=== PATIENT | female | born 1970 | race Caucasian/White ===

== ENCOUNTER → 2017-07-23 09:27 | Outpatient (CLI) | payer OTHER, SELFPAY ==
[2017-07-23 10:17] LABS: Add Manual Diff / Slide Review NO; Basophils Percent Auto 1.4 % (0-2); Eosinophils Percent Auto 2.5 % (2-4); Hematocrit 43.4 % (36-46); Hemoglobin 14.8 g/dL (12.0-16.0); Lymphocytes Percent Auto 34.6 % (25-40); Mean Corpuscular HGB Conc 34.2 % (30-36); Mean Corpuscular Hemoglobin 28.9 PG (26-34); Mean Corpuscular Volume 84.5 fL (80-100); Monocytes Percent Auto 7.8 % (3-14); Neutrophils Absolute Auto 3400 /uL (3000-5900); Neutrophils Percent Auto 53.7 % (50-75); Platelet Count 280 X10^3/uL (150-400); Red Blood Cell Count 5.14 X10^6/uL (4.0-5.2); Red Cell Distribution Width 13.8 % (11.6-14.8); White Blood Cell Count 6.3 X10^3/uL (4.5-11.0)
[2017-07-23 10:34] LABS: Alanine Aminotransferase 48 IU/L (9-52); Albumin 4.5 g/dL (3.5-5.0); Albumin Globulin Ratio 1.7 (1.0-2.8); Alkaline Phosphatase 54 U/L (38-126); Aspartate Aminotransferase 29 IU/L (14-36); BUN Creatinine Ratio 22.5 (6-22); Bilirubin Total 0.5 mg/dL (0.2-1.3); Calcium 9.4 mg/dL (8.4-10.2); Cholesterol 218 mg/dL (140-199); Estimated Glomerular Filt Rate > 60.0 mL/min (>60); Globulin 2.7 g/dL (1.7-4.1); Glucose 105 mg/dL (70-100); HDL Cholesterol 37 mg/dL (40-60); LDL Cholesterol Calculated 162 mg/dL (<100); Sodium 140 mmol/L (137-145); Total Protein 7.2 g/dL (6.3-8.2); Triglycerides 97 mg/dL (35-150)
[2017-07-23 10:35] LABS: HEMOLYSIS < 15 (0-50); Potassium 3.8 mmol/L (3.4-5.1)
== END ==
PROVIDERS: PCP Family Medicine; Visit Provider Family Medicine
DX: E78.2 Mixed hyperlipidemia (principal)
CPT/HCPCS: 36415; 80053; 80061; 85025

== ENCOUNTER → 2018-03-11 09:16 | Outpatient (CLI) | payer BC, SELFPAY ==
[2018-03-11 10:48] LABS: Alanine Aminotransferase 47 IU/L (9-52); Albumin 4.3 g/dL (3.5-5.0); Albumin Globulin Ratio 1.9 (1.0-2.8); Alkaline Phosphatase 48 U/L (38-126); Aspartate Aminotransferase 21 IU/L (14-36); Bilirubin Total 0.3 mg/dL (0.2-1.3); Blood Urea Nitrogen 16 mg/dL (7-17); Calcium 9.5 mg/dL (8.4-10.2); Carbon Dioxide 28 mmol/L (22-32); Chloride 103 mmol/L (98-107); Cholesterol 171 mg/dL (140-199); Estimated Glomerular Filt Rate > 60.0 mL/min (>60); Globulin 2.3 g/dL (1.7-4.1); Glucose 101 mg/dL (70-100); HDL Cholesterol 44 mg/dL (40-60); HEMOLYSIS < 15 (0-50); LDL Cholesterol Calculated 107 mg/dL (<100); Potassium 4.2 mmol/L (3.4-5.1); Sodium 141 mmol/L (137-145); Total Protein 6.6 g/dL (6.3-8.2); Triglycerides 102 mg/dL (35-150)
== END ==
PROVIDERS: PCP Family Medicine; Visit Provider Family Medicine
DX: E78.5 Hyperlipidemia, unspecified (principal); I10 Essential (primary) hypertension
CPT/HCPCS: 36415; 80053; 80061

== ENCOUNTER 2022-02-21 12:16 | Emergency (ER) | payer BC, SELFPAY ==
[2022-02-21] VITALS (14 sets, daily range): BP systolic 123–144; BP diastolic 62–91; PULSE 43–97; RESP 15–35; TEMP 36.8–37; O2SAT 84–100; BMI 26.9
--- NOTE | 2022-02-21 12:43 | DI.RAD.S_ITS ---
PROCEDURE: XR CHEST 1V INDICATIONS: near syncope TECHNIQUE: One view of the chest was acquired. COMPARISON: [facility], , CHEST 1 VIEW, 07/29/2015, 12:30. FINDINGS: Surgical changes and devices: None. Lungs and pleura: Lungs are clear. No pleural effusions or pneumothorax. Mediastinum: Mediastinal contours appear normal. Heart size is normal. Bones and chest wall: No suspicious bony lesions. Overlying soft tissues appear unremarkable. IMPRESSION: No evidence acute pulmonary process. Dictated by: Morgan Clay M.D. on 02/21/2022 at 13:14 Approved by: Morgan Clay M.D. on 02/21/2022 at 13:14
[2022-02-21 13:08] LABS: Add Manual Diff / Slide Review NO; Basophils Absolute Auto 100 /uL (0-100); Basophils Percent Auto 0.9 % (0-2); Eosinophils Absolute Auto 400 /uL (0-450); Eosinophils Percent Auto 3.4 % (2-4); Hematocrit 42.3 % (36-46); Hemoglobin 14.3 g/dL (12.0-16.0); Lymphocytes Absolute Auto 2600 /uL (1100-4500); Lymphocytes Percent Auto 25.1 % (25-40); Mean Corpuscular HGB Conc 33.7 % (30-36); Mean Corpuscular Hemoglobin 28.2 PG (26-34); Mean Corpuscular Volume 83.6 fL (80-100); Monocytes Absolute Auto 1100 /uL (0-900); Monocytes Percent Auto 10.5 % (3-14); Neutrophils Absolute Auto 6300 /uL (1500-7000); Neutrophils Percent Auto 60.1 % (50-75); Platelet Count 312 X10^3/uL (150-400); Red Blood Cell Count 5.06 X10^6/uL (4.0-5.2); Red Cell Distribution Width 14.2 % (11.6-14.8); White Blood Cell Count 10.5 X10^3/uL (4.5-11.0)
[2022-02-21 13:14] LABS: D Dimer 603 ng/ml (<500)
[2022-02-21 13:17] LABS: Alanine Aminotransferase 52 IU/L (<35); Albumin 4.6 g/dL (3.5-5.0); Albumin Globulin Ratio 1.4 (1.0-2.8); Alkaline Phosphatase 112 U/L (38-126); Aspartate Aminotransferase 30 IU/L (14-36); BUN Creatinine Ratio 14.6 (6-22); Bilirubin Total 0.5 mg/dL (0.2-1.3); Blood Urea Nitrogen 14 mg/dL (7-17); Calcium 9.8 mg/dL (8.4-10.2); Carbon Dioxide 30 mmol/L (22-32); Chloride 94 mmol/L (98-107); Estimated Glomerular Filt Rate > 60 mL/min (>60); Globulin 3.2 g/dL (1.7-4.1); Glucose 118 mg/dL (70-100); HEMOLYSIS < 15 (0-50); Sodium 138 mmol/L (137-145); Total Protein 7.8 g/dL (6.3-8.2)
[2022-02-21] MEDS: SODIUM CHLORIDE 0.9% 1,000 ML 150 ML IV (13:20)
[2022-02-21 13:28] LABS: Troponin I < 0.012 ng/mL (0.01-0.034)
--- NOTE | 2022-02-21 13:32 | DI.CT.S_ITS ---
PROCEDURE: CT ANGIO CHEST PE PROTOCOL INDICATIONS: eval pe, elevated dimer TECHNIQUE: After the administration of intravenous contrast, 2 mm thick sections acquired from the pulmonary apices to the posterior costophrenic angles. 3-dimensional maximum intensity projection (MIP) coronal and sagittal reformats were then acquired through the thorax. For radiation dose reduction, the following was used: automated exposure control, adjustment of mA and/or kV according to patient size. COMPARISON: None. FINDINGS: Image quality: Excellent. Pulmonary arteries: Pulmonary arteries are normal in size, and demonstrate no intraluminal filling defects to suggest central pulmonary embolism. Lungs and pleura: Lungs are clear. No pleural effusions or pneumothorax. Central and peripheral airways are patent. Mediastinum: Heart size is normal, without pericardial effusion. No mediastinal or hilar adenopathy. Thoracic aorta is normal in caliber and enhancement. Esophagus is normal in caliber, without hiatal hernia. Bones and chest wall: No suspicious bony lesions. Ribs and thoracic spine appear intact throughout. Thyroid gland is unremarkable as visualized. No axillary or supraclavicular adenopathy. Abdomen: Visualized upper abdominal solid organs appear normal in the early arterial phase of enhancement. IMPRESSION: 1. No evidence acute pulmonary emboli. 2. No evidence acute pulmonary process. Dictated by: Morgan Clay M.D. on 02/21/2022 at 14:07 Approved by: Morgan Clay M.D. on 02/21/2022 at 14:09
[2022-02-21] MEDS: POTASSIUM CHLORIDE 20 MEQ/15 ML UDC 40 MEQ PO (13:37)
--- NOTE | 2022-02-21 13:42 | PC.NURSE ---
ivf increased per Dr. Murrell to wide open, 999 mls/hour
[2022-02-21 14:19] LABS: Influenza A - CEPHEID Flu A NEGATIVE (NEGATIVE); Influenza B - CEPHEID Flu B NEGATIVE (NEGATIVE); Respiratory Syncytial Virus Negative (Negative)
[2022-02-21 14:30] LABS: COVID-19 CEPHEID 4-PLEX PCR Negative (Negative)
[2022-02-21 14:42] LABS: Magnesium 2.1 mg/dL (1.6-2.3)
--- NOTE | 2022-02-21 15:15 | PC.NURSE ---
Pt was able to ambulate to the bathroom. No statements of dizziness, but stated that her vision of her surrounds seemed off. Pt was able to ambulate back to bed with no dizziness or SOB.
[2022-02-21 15:42] LABS: Appearance Urine UA CLEAR; Bilirubin Urine UA NEGATIVE (NEGATIVE); Color Urine UA YELLOW; Glucose Urine UA NEGATIVE (Negative); Ketones Urine UA 1+ (NEGATIVE); Leukocyte Esterase Urine UA NEGATIVE (NEGATIVE); Nitrite Urine UA NEGATIVE (Negative); Occult Blood Urine UA TRACE-INTACT (Negative); Protein Urine UA NEGATIVE (Negative); Urobilinogen Urine UA 0.2 E.U./dL (0.2)
--- NOTE | 2022-02-21 15:43 | ED.SYNCOPE ---
HPI - Syncope General Chief Complaint: Dizziness Stated Complaint: Near Syncope Time Seen by Provider: 02/21/22 12:24 Source: EMS Mode of arrival: EMS Limitations: no limitations History of Present Illness HPI narrative: 51-year-old female presenting with near syncopal episode that occurred while driving. Patient reports developing lightheadedness, bilateral upper and lower extremity paresthesias, shortness of breath. Patient did not lose consciousness completely, patient does have a history of neurocardiogenic syncope, patient has not had complete syncope with these episodes in the past, this was diagnosed on tilt-table testing. Patient reports fasting earlier in the day, has only had coffee to eat or drink earlier in the day. No recent fevers. No palpitations, no chest pain. Related Data Previous Rx's Medication Instructions Recorded valacyclovir 1 gram tablet 1,000 mg PO Q DAY #90 tabs 07/29/17 simvastatin 20 mg tablet 20 mg PO QPM #90 tabs 03/12/18 valsartan 160 1 tab PO BID #60 tabs 04/13/18 mg-hydrochlorothiazide 25 mg tablet (Diovan HCT) Allergies Allergy/AdvReac Type Severity Reaction Status Date / Time Penicillins [PENICILLINS] Allergy Unknown Verified 02/21/22 12:33 Review of Systems Review of Systems Narrative: Constitutional, Eyes, ENT, Pulmonary, Cardiovascular, Gastrointestinal, Renal, Endocrine, Genitourinary, Musculoskeletal, Neurologic, Skin, and Psychiatric systems were reviewed and negative unless indicated in the HPI above. Patient History Medical History Chronic fatigue (Unknown) Depression (Unknown) Granulomatous mastitis (Unknown) HSV-1 (herpes simplex virus 1) infection (~11/2014) Hyperlipidemia (~12/2014) Hypertension (Unknown) Migraines (Unknown) Neurocardiogenic syncope (Unknown) Pneumonia (2012) Surgical History History of third molar tooth extraction Status post breast lumpectomy Status post surgery (03/19/15) Social History Smoking Status: Never smoker Smoking Status: Never smoker Substance Use Type: does not use Exam Narrative Exam Narrative: Vitals reviewed. Nursing note reviewed Constitutional: interactive HENT: Moist mucous membranes EYES: No scleral icterus NECK: no masses CV: Well perfused peripherally, no cyanosis present PULM: Unlabored respirations, symmetric chest rise ABD: Non-distended MS: No gross deformities, no asymmetric edema noted SKIN: Warm and dry. PSYCH: Appropriate affect NEURO: MS: cooperative, interactive with exam CN: PERRL (II/III) EOMI (III/IV/) Symmetric facial sensation (V) Symmetric facial expression (VII) Hearing intact to voice (VIII) Palate elevates symmetrically (IX/X) Strong shoulder shrug (XI) Tongue protrudes midline (XII) Motor: normal tone and bulk, 5/5 in the upper and lower extremities DTR?s: deferred Sensory: intact to light touch Gait/station: stable, no ataxia Initial Vital Signs Initial Vital Signs: Vital Signs Pulse Rate 89 02/21/22 12:29 Respiratory Rate 20 02/21/22 12:29 Course Orders Ordered: ED Orders 02/21/22 12:30 Complete Blood Count AUTO DIFF Stat Comprehensive Metabolic Panel Stat D Dimer Stat Magnesium Stat Troponin I Stat 02/21/22 12:43 XR chest 1V Stat 02/21/22 13:05 Covid-19 + FLU A/B + RSV - PCR Stat 02/21/22 13:32 CT angio chest PE protocol Stat 02/21/22 15:15 Urinalysis Screen (Dip Only) Stat Sodium Chloride (Normal Saline 0.9%) 1,000 mls @ 150 mls/hr IV CONT KANDIS Last Infusion: 02/21/22 15:24 Dose: 0 mls/hr Documented By: Infusion: 02/21/22 13:41 Dose: 999 mls/hr Documented By: Admin: 02/21/22 13:20 Dose: 150 mls/hr Documented By: RLS Discontinued Medications Potassium Chloride (Potassium Chloride 20 Meq/15 Ml Udc) 40 meq PO NOW ONE Stop: 02/21/22 13:34 Last Admin: 02/21/22 13:37 Dose: 40 meq Documented By: JIMBO Vital Signs Vital signs: Vital Signs - 8 hr 02/21/22 12:30 02/21/22 12:34 02/21/22 12:29 Temperature 98.2 F Pulse Rate 89 Pulse Rate [Orthostatic Lying] 94 H Pulse Rate [Orthostatic Sitting] 97 H Pulse Rate [Orthostatic Standing] 96 H Respiratory Rate 20 Blood Pressure Blood Pressure [Orthostatic Lying] 130/86 Blood Pressure [Orthostatic Sitting] 135/91 H Blood Pressure [Orthostatic Standing] 142/87 H Pulse Oximetry Oxygen Delivery Method 02/21/22 12:30 02/21/22 13:00 02/21/22 13:28 Temperature Pulse Rate 88 80 86 Pulse Rate [Orthostatic Lying] Pulse Rate [Orthostatic Sitting] Pulse Rate [Orthostatic Standing] Respiratory Rate 19 15 Blood Pressure 144/73 H Blood Pressure [Orthostatic Lying] Blood Pressure [Orthostatic Sitting] Blood Pressure [Orthostatic Standing] Pulse Oximetry 93 99 99 Oxygen Delivery Method Room Air 02/21/22 13:28 02/21/22 13:30 02/21/22 13:30 Temperature Pulse Rate 85 Pulse Rate [Orthostatic Lying] Pulse Rate [Orthostatic Sitting] Pulse Rate [Orthostatic Standing] Respiratory Rate 22 Blood Pressure 144/73 H 141/62 H Blood Pressure [Orthostatic Lying] Blood Pressure [Orthostatic Sitting] Blood Pressure [Orthostatic Standing] Pulse Oximetry 100 Oxygen Delivery Method 02/21/22 14:00 02/21/22 14:15 02/21/22 14:15 Temperature Pulse Rate 96 H 90 Pulse Rate [Orthostatic Lying] Pulse Rate [Orthostatic Sitting] Pulse Rate [Orthostatic Standing] Respiratory Rate 25 H Blood Pressure 133/76 Blood Pressure [Orthostatic Lying] Blood Pressure [Orthostatic Sitting] Blood Pressure [Orthostatic Standing] Pulse Oximetry 98 100 Oxygen Delivery Method 02/21/22 14:30 02/21/22 14:30 02/21/22 15:09 Temperature Pulse Rate 92 H 43 L Pulse Rate [Orthostatic Lying] Pulse Rate [Orthostatic Sitting] Pulse Rate [Orthostatic Standing] Respiratory Rate 20 Blood Pressure 125/75 Blood Pressure [Orthostatic Lying] Blood Pressure [Orthostatic Sitting] Blood Pressure [Orthostatic Standing] Pulse Oximetry 99 84 L Oxygen Delivery Method 02/21/22 15:11 02/21/22 15:11 Temperature Pulse Rate 88 Pulse Rate [Orthostatic Lying] Pulse Rate [Orthostatic Sitting] Pulse Rate [Orthostatic Standing] Respiratory Rate 16 Blood Pressure 139/76 Blood Pressure [Orthostatic Lying] Blood Pressure [Orthostatic Sitting] Blood Pressure [Orthostatic Standing] Pulse Oximetry 98 Oxygen Delivery Method MDM - Syncope Lab Data Result diagrams: 02/21/22 12:30 02/21/22 12:30 Labs: Lab Results 02/21/22 02/21/22 02/21/22 Range/Units 12:30 12:30 12:30 WBC 10.5 (4.5-11.0) X10^3/uL RBC 5.06 (4.0-5.2) X10^6/uL Hgb 14.3 (12.0-16.0) g/dL Hct 42.3 (36-46) % MCV 83.6 (80-100) fL MCH 28.2 (26-34) PG MCHC 33.7 (30-36) % RDW 14.2 (11.6-14.8) % Plt Count 312 (150-400) X10^3/uL Neut % (Auto) 60.1 (50-75) % Lymph % (Auto) 25.1 (25-40) % Hettinger % (Auto) 10.5 (3-14) % Eos % (Auto) 3.4 (2-4) % Baso % (Auto) 0.9 (0-2) % Neut # (Auto) 6300 (1274-8740) /uL Lymph # (Auto) 2600 (8353-6992) /uL Hettinger # (Auto) 1100 H (0-900) /uL Eos # (Auto) 400 (0-450) /uL Baso # (Auto) 100 (0-100) /uL D-Dimer 603 H (<500) ng/ml Sodium 138 (137-145) mmol/L Potassium 3.0 L (3.4-5.1) mmol/L Chloride 94 L (98-107) mmol/L Carbon Dioxide 30 (22-32) mmol/L BUN 14 (7-17) mg/dL Creatinine 0.96 (0.52-1.04) mg/dL Estimated GFR > 60 (>60) mL/min BUN/Creatinine Ratio 14.6 (6-22) Glucose 118 H (70-100) mg/dL Calcium 9.8 (8.4-10.2) mg/dL Magnesium (1.6-2.3) mg/dL Total Bilirubin 0.5 (0.2-1.3) mg/dL AST 30 (14-36) IU/L ALT 52 H (<35) IU/L Alkaline Phosphatase 112 (38-126) U/L Troponin I < 0.012 (0.01-0.034) ng/mL Total Protein 7.8 (6.3-8.2) g/dL Albumin 4.6 (3.5-5.0) g/dL Globulin 3.2 (1.7-4.1) g/dL Albumin/Globulin Ratio 1.4 (1.0-2.8) Urine Color Urine Appearance Urine pH (4.5-8.0) Ur Specific Cadet (1.000-1.035) Urine Protein (Negative) Urine Glucose (UA) (Negative) g/dL Urine Ketones (NEGATIVE) Urine Occult Blood (Negative) Urine Nitrate (Negative) Urine Bilirubin (NEGATIVE) Urine Urobilinogen (0.2) E.U./dL Ur Leukocyte Esterase (NEGATIVE) SARS-CoV-2 (PCR) (Negative) Influenza A (RT-PCR) (NEGATIVE) Influenza B (RT-PCR) (NEGATIVE) RSV (PCR) (Negative) 02/21/22 02/21/22 02/21/22 Range/Units 12:30 13:05 15:15 WBC (4.5-11.0) X10^3/uL RBC (4.0-5.2) X10^6/uL Hgb (12.0-16.0) g/dL Hct (36-46) % MCV (80-100) fL MCH (26-34) PG MCHC (30-36) % RDW (11.6-14.8) % Plt Count (150-400) X10^3/uL Neut % (Auto) (50-75) % Lymph % (Auto) (25-40) % Hettinger % (Auto) (3-14) % Eos % (Auto) (2-4) % Baso % (Auto) (0-2) % Neut # (Auto) (8566-2228) /uL Lymph # (Auto) (8422-8415) /uL Hettinger # (Auto) (0-900) /uL Eos # (Auto) (0-450) /uL Baso # (Auto) (0-100) /uL D-Dimer (<500) ng/ml Sodium (137-145) mmol/L Potassium (3.4-5.1) mmol/L Chloride (98-107) mmol/L Carbon Dioxide (22-32) mmol/L BUN (7-17) mg/dL Creatinine (0.52-1.04) mg/dL Estimated GFR (>60) mL/min BUN/Creatinine Ratio (6-22) Glucose (70-100) mg/dL Calcium (8.4-10.2) mg/dL Magnesium 2.1 (1.6-2.3) mg/dL Total Bilirubin (0.2-1.3) mg/dL AST (14-36) IU/L ALT (<35) IU/L Alkaline Phosphatase (38-126) U/L Troponin I (0.01-0.034) ng/mL Total Protein (6.3-8.2) g/dL Albumin (3.5-5.0) g/dL Globulin (1.7-4.1) g/dL Albumin/Globulin Ratio (1.0-2.8) Urine Color Yellow Urine Appearance Clear Urine pH 8.0 (4.5-8.0) Ur Specific Cadet 1.010 (1.000-1.035) Urine Protein Negative (Negative) Urine Glucose (UA) Negative (Negative) g/dL Urine Ketones 1+ H (NEGATIVE) Urine Occult Blood Trace-intact (Negative) Urine Nitrate Negative (Negative) Urine Bilirubin Negative (NEGATIVE) Urine Urobilinogen 0.2 (0.2) E.U./dL Ur Leukocyte Esterase Negative (NEGATIVE) SARS-CoV-2 (PCR) Negative (Negative) Influenza A (RT-PCR) Flu a negative (NEGATIVE) Influenza B (RT-PCR) Flu b negative (NEGATIVE) RSV (PCR) Negative (Negative) Point of Care Testing Glucose POC 118 Urine Dip Bedside Urine Glucose Negative Bedside Urine Bilirubin - Negative Bedside Urine Ketone +/- 5 Urine Specific Cadet 1.010 Bedside Urine Occult Blood +/- Bedside Urine pH 8.0 Bedside Urine Protein - Negative Bedside Urine Urobilinogen - Negative Bedside Urine Nitrite - Negative Bedside Urine Leukocytes - Negative Esterase MDM Narrative Medical decision making narrative: 51-year-old female presenting with near syncopal episode, paresthesias, generalized weakness. Vitals on presentation notable for no significant abnormalities. Physical exam on presentation notable for well-appearing 51-year-old female without neuro deficits, no clear vertiginous symptoms. Initial concern for significant cardiac arrhythmia, ACS, pulmonary embolism, infectious etiology, dehydration, occult CVA, medication effect, recurrent neurocardiogenic syncope, medication effect. EKG obtained on presentation notable for prolonged QTC, no significant ectopy, no ischemic changes noted. Low suspicion for occult ACS given overall reassuring EKG, no significant chest pain previous anginal equivalent type symptoms, reassuring troponin. Concern for possible pulmonary embolism given constellation of symptoms, shortness of breath, mildly elevated D-dimer, CTA chest was therefore obtained to further evaluate and reassuring as above. No clear evidence of focal neurologic deficits to suggest CVA, patient has no focal weakness, no spinning dizziness or vertiginous symptoms, paresthesias did not localize. Patient with reassuring neurologic exam in the emergency department both initially and on repeat evaluation. Patient able to ambulate without ataxia or difficulty. Screening labs notable for hypokalemia to 3.0, this was repleted in the emergency department, normal range magnesium. No evidence of infectious etiology. On repeat evaluation, patient is able to ambulate without difficulty, with marked improvement in symptoms. Discussed unclear etiology to explain the patient's symptoms. Discussed plan for discharge and close outpatient follow-up in the next 2-3 days, return precautions discussed. Discussed if symptoms persist, patient will require additional workup. Patient is comfortable with this plan and subsequently discharged in stable condition. Discharge Plan Departure Patient Disposition: Home Clinical Impression: Near syncope Instructions: DI for Syncope in Adults (Fainting), Orthostatic Hypotension, DI for Vertigo Activity Restrictions/Additional Instructions: *You have been diagnosed with near syncope. *What to do: *Please follow up with your primary care provider in 2-3 days, call for an appointment. Let them know you were seen in the Emergency Department and that we ask that you be seen in follow up. We will electronically transmit a record of today's note if your PCP is in our system *Return to Emergency Department if you should have any new, worsening or concerning symptoms, such as [fever greater than 101 F, shaking chills, worsening pain, persistent vomiting or other bothersome symptoms] Prescriptions: No Action valacyclovir 1 gram tablet 1,000 mg PO Q DAY Qty: 90 3RF simvastatin 20 mg tablet 20 mg PO QPM Qty: 90 1RF valsartan-hydrochlorothiazide [Diovan HCT] 160-25 mg tablet 1 tab PO BID Qty: 60 0RF Referrals: Caprice Patterson, [Primary Care Provider] -
== END 2022-02-21 16:54 | disposition home or self-care (01) ==
PROVIDERS: Emergency Provider Emergency Medicine; Family Provider Family Medicine; PCP Family Medicine
DX: R55 Syncope and collapse (principal); E87.6 Hypokalemia; Z20.822 Contact with and (suspected) exposure to COVID-19
CPT/HCPCS: 0241U; 71045; 71275; 80053; 81003; 82962; 83735; 84484; 85025; 85379; 93005; 96360; 99284; Q9967